=== PATIENT | male | born 1940 | race Caucasian/White ===

== ENCOUNTER 2019-06-27 21:09 | Inpatient (IN) | payer BC, OTHER ==
[~2019-06-27] VITALS: Ht 177.8 cm; Wt 60.7 kg
[2019-06-27 21:36] LABS: Basophils # (auto) 0 10 ^3/uL (0-0.2); Basophils % (auto) 0.4 % (0.0-2.0); Eosinophils # (auto) 0 10 ^3/uL (0-0.8); Eosinophils % (auto) 0.8 % (0.0-7.0); Hematocrit 39.4 % (41.0-53.0); Hemoglobin 13.2 g/dL (13.5-17.5); Lymphocytes # (auto) 1.2 10 ^3/uL (0.4-5.4); Lymphocytes % (auto) 20.2 % (10.0-50.0); Mean Corpuscular Hemoglobin 29.9 pg (28.0-32.0); Mean Corpuscular Hgb Conc. 33.6 g/dL (32.0-36.0); Mean Corpuscular Volume 88.9 fL (80.0-100.0); Monocytes # (auto) 0.4 10 ^3/uL (0-1.3); Monocytes % (auto) 7.2 % (0.0-12.0); Neutrophils # (auto) 4.2 10 ^3/uL (1.6-8.6); Neutrophils % (auto) 71.4 % (37.0-80.0); Platelet Count (auto) 173 10^3/uL (140-450); Red Blood Cells 4.43 10^6/uL (4.5-5.90); Red Cell Distribution Width 13.6 % (11.8-14.3)
[2019-06-27 21:54] LABS: Albumin 3.6 g/dL (3.4-5.0); Anion Gap 9 (5-15); Blood Urea Nitrogen 28 mg/dL (7-18); Calcium 8.7 mg/dL (8.5-10.1); Carbon Dioxide 25 mmol/L (21-32); Chloride 103 mmol/L (98-107); Glucose 136 mg/dL (74-106); Magnesium 2.6 mg/dL (1.6-2.6); Potassium 4.1 mmol/L (3.5-5.1); Sodium 137 mmol/L (136-145)
[2019-06-27 22:00] LABS: Alanine Aminotransferase 33 U/L (16-61); Alkaline Phosphatase 87 U/L (45-117); Aspartate Aminotransferase 27 U/L (15-37); BUN/Creatinine Ratio 18.7; Bilirubin, Total 0.9 mg/dL (0.2-1.0); GFR African American 58 mL/min; GFR Non-African American 48 mL/min; Total Protein 7.1 g/dL (6.4-8.2)
[2019-06-27 22:38] LABS: Urine Bacteria FEW /hpf (None Seen); Urine Blood Negative /uL (Negative); Urine Hyaline Cast FEW /lpf (0 - 2); Urine Mucus FEW (None Seen); Urine Specific Gravity 1.025 (1.001-1.035); Urine WBC 4 /hpf (0 - 3)
[2019-06-27 23:42] LABS: INR 1.06 (0.9-1.15)
[2019-06-28] MEDS ORDERED: ACETAMINOPHEN 325 MG TAB PO PRN (03:00)
[2019-06-28] MEDS ORDERED: ONDANSETRON HCL 4 MG/2 ML VIAL IV PRN (03:00)
[2019-06-28] MEDS ORDERED: TEMAZEPAM 15 MG CAP PO PRN (03:00)
[2019-06-28] MEDS: SODIUM CHLORIDE 0.9% 1,000 ML IV SCH ×2 (03:06→04:33)
[2019-06-28 05:00] VITALS: BP 143/77
[2019-06-28] MEDS: LEVOTHYROXINE SODIUM 88 MCG TAB PO SCH (06:23)
[2019-06-28 09:00] VITALS: BP 108/63
[2019-06-28] MEDS ORDERED: cefTRIAXone 1GM/50ML D5W 50 ML IV SCH (09:00)
[2019-06-28] MEDS: ENOXAPARIN SOD 40 MG/0.4 ML SYRINGE SC SCH (09:25)
[2019-06-28] MEDS: PANTOPRAZOLE 40 MG TAB PO SCH (09:25)
[2019-06-28] MEDS ORDERED: ASPirin 81 mg TAB PO ONE (11:00)
[2019-06-28 13:00] VITALS: BP 143/71
[2019-06-28] MEDS ORDERED: LORazepam 2MG/ML-1ML VIAL IM ONE (18:15)
[2019-06-28] MEDS ORDERED: HALOPERIDOL LACTATE 5 MG/ML INJ VIAL IM ONE (18:15)
[2019-06-28] MEDS ORDERED: ATORVASTATIN 20 MG TAB PO SCH (22:00)
[2019-06-28] MEDS: ATORVASTATIN 20 MG TAB PO SCH (22:55)
[2019-06-29 05:38] VITALS: BP 129/65
[2019-06-29] MEDS: LEVOTHYROXINE SODIUM 88 MCG TAB PO SCH (06:00)
[2019-06-29 06:07] LABS: BUN/Creatinine Ratio 23.5; Calcium 7.5 mg/dL (8.5-10.1); Potassium 3.4 mmol/L (3.5-5.1)
[2019-06-29 06:18] LABS: Cholesterol 107 mg/dL (< 200); HDL Cholesterol 48 mg/dL (40-59); LDL Cholesterol 50 mg/dL (< 100); Triglycerides 70 mg/dL (< 150)
[2019-06-29 09:00] VITALS: BP 114/58
[2019-06-29] MEDS: PANTOPRAZOLE 40 MG TAB PO SCH (09:54)
[2019-06-29] MEDS: ASPirin 81 mg TAB PO SCH (09:54)
[2019-06-29] MEDS: ENOXAPARIN SOD 40 MG/0.4 ML SYRINGE SC SCH (09:55)
[2019-06-29] MEDS: SODIUM CHLORIDE 0.9% 1,000 ML IV SCH (10:10)
[2019-06-29] MEDS ORDERED: POTASSIUM CHL 20 Meq TABLET PO ONE (11:15)
[2019-06-29] MEDS ORDERED: CYANOCOBALAMIN (B-12) 1000 MCG/1 ML VIAL SUBCUT ONE (11:15)
[2019-06-29 13:00] VITALS: BP 130/73
[2019-06-29] MEDS ORDERED: IOHEXOL 350 MG/ML 100ML IJ ONE (13:56)
[2019-06-29 17:00] VITALS: BP 100/76
[2019-06-29] MEDS: ATORVASTATIN 20 MG TAB PO SCH (21:18)
[2019-06-29 22:00] VITALS: BP 109/69
[2019-06-30 05:00] VITALS: BP 135/86
[2019-06-30] MEDS: LEVOTHYROXINE SODIUM 88 MCG TAB PO SCH (06:37)
[2019-06-30 07:09] LABS: BUN/Creatinine Ratio 17.5; Potassium 3.8 mmol/L (3.5-5.1)
[2019-06-30 09:00] VITALS: BP 128/69
[2019-06-30] MEDS: ENOXAPARIN SOD 40 MG/0.4 ML SYRINGE SC SCH (10:24)
[2019-06-30] MEDS: PANTOPRAZOLE 40 MG TAB PO SCH (10:25)
[2019-06-30] MEDS: ASPirin 81 mg TAB PO SCH (10:25)
[2019-06-30] MEDS ORDERED: cefTRIAXone 1GM/50ML D5W 50 ML IV ONE (12:45)
[2019-06-30 13:00] VITALS: BP 126/78
[2019-06-30] MEDS: CYANOCOBALAMIN 500 MCG TAB PO SCH (13:02)
[2019-06-30 17:00] VITALS: BP 157/91
[2019-06-30] MEDS: ATORVASTATIN 20 MG TAB PO SCH (21:33)
[2019-06-30 22:00] VITALS: BP 160/90
[2019-07-01] MEDS ORDERED: LORazepam 2MG/ML-1ML VIAL ONE (01:05)
[2019-07-01 05:00] VITALS: BP 131/76
[2019-07-01] MEDS: LEVOTHYROXINE SODIUM 88 MCG TAB PO SCH (06:10)
[2019-07-01] MEDS: cefTRIAXone 1GM/50ML D5W 50 ML IV SCH (09:20)
[2019-07-01] MEDS: ASPirin 81 mg TAB PO SCH (09:20)
[2019-07-01] MEDS: PANTOPRAZOLE 40 MG TAB PO SCH (09:21)
[2019-07-01] MEDS: CYANOCOBALAMIN 500 MCG TAB PO SCH (09:21)
[2019-07-01 09:28] VITALS: BP 117/77
[2019-07-01] MEDS: ENOXAPARIN SOD 40 MG/0.4 ML SYRINGE SC SCH (09:35)
[2019-07-01 13:00] VITALS: BP 140/78
[2019-07-01 16:53] VITALS: BP 124/75
[2019-07-01 17:35] LABS: Basophils # (auto) 0 10 ^3/uL (0-0.2); Basophils % (auto) 0.4 % (0.0-2.0); Eosinophils # (auto) 0.1 10 ^3/uL (0-0.8); Eosinophils % (auto) 1.6 % (0.0-7.0); Lymphocytes # (auto) 1.3 10 ^3/uL (0.4-5.4); Lymphocytes % (auto) 22.1 % (10.0-50.0); Mean Corpuscular Hgb Conc. 33.4 g/dL (32.0-36.0); Mean Corpuscular Volume 89.7 fL (80.0-100.0); Monocytes # (auto) 0.5 10 ^3/uL (0-1.3); Monocytes % (auto) 8.6 % (0.0-12.0); Neutrophils # (auto) 3.8 10 ^3/uL (1.6-8.6); Neutrophils % (auto) 67.3 % (37.0-80.0); Nucleated Red Blood Cells % 0.1 %; Platelet Count (auto) 197 10^3/uL (140-450); Red Blood Cells 4.34 10^6/uL (4.5-5.90); Red Cell Distribution Width 14.3 % (11.8-14.3); White Blood Cell 5.7 10^3/uL (4.4-10.8)
[2019-07-01 17:52] LABS: BUN/Creatinine Ratio 16.8; Calcium 8.8 mg/dL (8.5-10.1); Potassium 3.6 mmol/L (3.5-5.1)
[2019-07-01] MEDS: ATORVASTATIN 20 MG TAB PO SCH (21:19)
[2019-07-01 22:00] VITALS: BP 127/101
[2019-07-01] MEDS ORDERED: LORazepam 0.5 MG TAB PO PRN (22:15)
[2019-07-02] VITALS (7 sets, daily range): BP systolic 118–143; BP diastolic 73–88
[2019-07-02] MEDS: LEVOTHYROXINE SODIUM 88 MCG TAB PO SCH (06:01)
[2019-07-02 07:11] LABS: Basophils # (auto) 0 10 ^3/uL (0-0.2); Basophils % (auto) 0.7 % (0.0-2.0); Eosinophils # (auto) 0.2 10 ^3/uL (0-0.8); Hematocrit 36.2 % (41.0-53.0); Hemoglobin 12.1 g/dL (13.5-17.5); Lymphocytes # (auto) 1.2 10 ^3/uL (0.4-5.4); Lymphocytes % (auto) 28.5 % (10.0-50.0); Mean Corpuscular Hgb Conc. 33.4 g/dL (32.0-36.0); Mean Corpuscular Volume 89.9 fL (80.0-100.0); Monocytes # (auto) 0.3 10 ^3/uL (0-1.3); Monocytes % (auto) 8.2 % (0.0-12.0); Neutrophils # (auto) 2.4 10 ^3/uL (1.6-8.6); Neutrophils % (auto) 58.6 % (37.0-80.0); Nucleated Red Blood Cells % 0.1 %; Platelet Count (auto) 175 10^3/uL (140-450); Red Blood Cells 4.03 10^6/uL (4.5-5.90); Red Cell Distribution Width 14.3 % (11.8-14.3); White Blood Cell 4.1 10^3/uL (4.4-10.8)
[2019-07-02 07:28] LABS: Calcium 8.5 mg/dL (8.5-10.1); Potassium 3.1 mmol/L (3.5-5.1)
[2019-07-02 07:32] LABS: BUN/Creatinine Ratio 22.8
[2019-07-02] MEDS ORDERED: GLYCOPYRROLATE 0.2 MG/ML 1ML VIAL ONE (09:34)
[2019-07-02] MEDS ORDERED: ANGIOMAX 250 MG VIAL IV ONE (09:34)
[2019-07-02] MEDS ORDERED: SODIUM CHL 0.9% 0 ML ONE (09:34)
[2019-07-02] MEDS ORDERED: PHENYLEPHRINE HCL 10 MG/ML VL ONE (09:36)
[2019-07-02] MEDS ORDERED: LIDOCAINE 2%HCL (LOCAL ANESTH.) INJ 20ML MDV ONE (09:39)
[2019-07-02] MEDS ORDERED: HEPARIN IN NS 1000Units/500mL 0 ML ONE (09:44)
[2019-07-02] MEDS: ENOXAPARIN SOD 40 MG/0.4 ML SYRINGE SC SCH (10:00)
[2019-07-02] MEDS ORDERED: POTASSIUM CHL 20 Meq TABLET PO ONE (10:30)
[2019-07-02] MEDS: CYANOCOBALAMIN 500 MCG TAB PO SCH (12:03)
[2019-07-02] MEDS: PANTOPRAZOLE 40 MG TAB PO SCH (12:03)
[2019-07-02] MEDS: ASPirin 81 mg TAB PO SCH (12:03)
[2019-07-02] MEDS: cefTRIAXone 1GM/50ML D5W 50 ML IV SCH (12:04)
[2019-07-02] MEDS ORDERED: LABETALOL HCL 5 MG/ML 4ML SYRINGE IV PRN (12:45)
[2019-07-02] MEDS: ATORVASTATIN 20 MG TAB PO SCH (22:03)
[2019-07-03 05:00] VITALS: BP 117/88
[2019-07-03] MEDS: LEVOTHYROXINE SODIUM 88 MCG TAB PO SCH (05:44)
[2019-07-03 07:50] LABS: Anion Gap 8 (5-15); BUN/Creatinine Ratio 31.1; Blood Urea Nitrogen 28 mg/dL (7-18); Calcium 8.2 mg/dL (8.5-10.1); Carbon Dioxide 21 mmol/L (21-32); Chloride 111 mmol/L (98-107); GFR African American 105 mL/min; GFR Non-African American 87 mL/min; Glucose 88 mg/dL (74-106); Potassium 3.5 mmol/L (3.5-5.1); Sodium 140 mmol/L (136-145)
[2019-07-03 08:00] VITALS: BP 123/70
[2019-07-03 09:00] VITALS: BP 136/80
[2019-07-03] MEDS: cefTRIAXone 1GM/50ML D5W 50 ML IV SCH (09:49)
[2019-07-03] MEDS: CYANOCOBALAMIN 500 MCG TAB PO SCH ×2 (09:50→10:00)
[2019-07-03] MEDS: PANTOPRAZOLE 40 MG TAB PO SCH ×2 (09:50→10:00)
[2019-07-03] MEDS: ASPirin 81 mg TAB PO SCH ×2 (09:50→10:00)
[2019-07-03 13:00] VITALS: BP 123/70
[2019-07-03 14:55] VITALS: BP 118/65
[2019-07-03 17:00] VITALS: BP 155/93
== END 2019-07-03 18:37 | disposition home or self-care (01) | DRG 67 ==
LOC: EDBD 21:09 → ER 21:13 → CENTRAL 21:14
PROVIDERS: ADMIT Nurse Practitioner; ATTEND Internal Medicine
PROC: B3151ZZ Fluoroscopy of Bilateral Common Carotid Arteries using Low Osmolar Contrast (ICD-10-PCS; principal; 2019-07-02)
PROC: B3121ZZ Fluoroscopy of Left Subclavian Artery using Low Osmolar Contrast (ICD-10-PCS; 2019-07-02)
PROC: B3181ZZ Fluoroscopy of Bilateral Internal Carotid Arteries using Low Osmolar Contrast (ICD-10-PCS; 2019-07-02)
PROC: B31C1ZZ Fluoroscopy of Bilateral External Carotid Arteries using Low Osmolar Contrast (ICD-10-PCS; 2019-07-02)
DX: I65.21 Occlusion and stenosis of right carotid artery (principal); N17.0 Acute kidney failure with tubular necrosis; G93.40 Encephalopathy, unspecified; N39.0 Urinary tract infection, site not specified; R62.7 Adult failure to thrive; E86.0 Dehydration; N18.3 Chronic kidney disease, stage 3 (moderate); E03.9 Hypothyroidism, unspecified; E87.6 Hypokalemia; Z60.2 Problems related to living alone; F03.90 Unspecified dementia, unspecified severity, without behavioral disturbance, psychotic disturbance, mood disturbance, and anxiety; I12.9 Hypertensive chronic kidney disease with stage 1 through stage 4 chronic kidney disease, or unspecified chronic kidney disease; E78.5 Hyperlipidemia, unspecified; E53.8 Deficiency of other specified B group vitamins; Z79.82 Long term (current) use of aspirin; Z79.899 Other long term (current) drug therapy; Z86.73 Personal history of transient ischemic attack (TIA), and cerebral infarction without residual deficits; Z91.81 History of falling
CPT/HCPCS: 36223; 36224; 36225; 36415; 70450; 70498; 71045; 80048; 80053; 80061; 81001; 82607; 83735; 84443; 84484; 85025; 85610; 85730; 87086; 93005; 93306; 93886; 97163; 99152; G0378; J0696